=== PATIENT | female | born 1965 | race Caucasian/White ===

== ENCOUNTER 2023-08-26 12:47 | Emergency (ER) | payer SELFPAY ==
[2023-08-26] MEDS ORDERED: Ondansetron PF 4 MG/2 ML Vial ONE (13:49)
[2023-08-26] MEDS ORDERED: Morphine 4 MG/ML VIAL ONE (13:49)
[2023-08-26 14:34] LABS: SARS-CoV-2 NAA Rapid Test DETECTED (NotDetected)
== END 2023-08-26 14:53 | disposition home or self-care (01) ==
LOC: ERS 12:47
DX: U07.1 COVID-19 (principal); E11.9 Type 2 diabetes mellitus without complications; F41.9 Anxiety disorder, unspecified; F32.A Depression, unspecified; F43.10 Post-traumatic stress disorder, unspecified; F17.210 Nicotine dependence, cigarettes, uncomplicated; Z79.84 Long term (current) use of oral hypoglycemic drugs; Z55.6 Problems related to health literacy
CPT/HCPCS: 96374; 96375; J2270; J2405